=== PATIENT | male | born 1940 | race Caucasian/White ===

== ENCOUNTER → 2017-06-17 | Outpatient (CLI) | payer MEDICARE, BC ==
[~2017-06-17] MED LIST: ASPI325T6 PO; ASPIRIN 81M81 MG/TA2 PO; CALCIUM 600-D 61 TAB PO; FERROUS SU325 MG/TAB PO; FOLIC ACID 40400 MCG PO; LEVAQUIN 5500 MG/TA1 PO; LIPITOR 10MG10 MG PO; MASON NATURAL1200 MG PO; MULTIPLE VITAMI1 CAP PO; NORCO 325 MG-7.1 TAB PO; PREDNISONE20 MG PO; ROXICODONE 55 MG/TAB PO; SENOKOT S 50 MG1 TAB PO; SYNTHROID0.075 MG/T PO; VITAMIN C500 MG PO
== END ==
LOC: COL.VAS 12:09
DX: I65.23 Occlusion and stenosis of bilateral carotid arteries (principal); E78.00 Pure hypercholesterolemia, unspecified; R09.89 Other specified symptoms and signs involving the circulatory and respiratory systems

== ENCOUNTER → 2018-06-18 | Outpatient (CLI) | payer MEDICARE, BC | LOC: COL.VAS 12:27 | DX: H34.9 Unspecified retinal vascular occlusion (principal) ==

== ENCOUNTER 2019-03-18 16:08 | Inpatient (IN) | payer MEDICARE, BC ==
[~2019-03-18] VITALS: Ht 162.6 cm; Wt 75.3 kg
[2019-05-18] VITALS (13 sets, daily range): BP systolic 96–153; BP diastolic 61–86; PULSE 44–70; TEMP 97.5–98.4
[2019-05-18] MEDS ORDERED: LIPITOR20 MG PO (06:14)
[2019-05-18] MEDS ORDERED: EPA FISH OIL1 SGL PO (06:15)
[2019-05-18] MEDS ORDERED: MASON NATURAL1200 MG PO (06:15)
[2019-05-18] MEDS ORDERED: ASPIRIN E.C. 8181 MG PO (06:16)
[2019-05-18] MEDS ORDERED: CALCIUM CARBON650 M2 PO (06:16)
[2019-05-18] MEDS ORDERED: FERROUS SU325 MG/TAB PO (06:18)
--- NOTE | 2019-05-18 06:30 | NUR ---
arrived on unit per at 0605, prepped for surgery without incident, to surgery per bed
--- NOTE | 2019-05-18 10:10 | NUR ---
returned to room per bed from PACU, awake and alert, IV infusing and placed on pump at 100ml/hr, O2 on at 2L/NC, phillips cath patent draining clear yellow urine, UDAY hose on left leg and bulky dressing to right leg is CD&I with ice in place, SCDs on bilaterally, has sensation at waist level and unable to move lower extremities, full assessment completed, see interventions for further info, will provide water, denies needs
--- NOTE | 2019-05-18 10:30 | NUR ---
medicated with scheduled tylenol, taking water and tolerates well
--- NOTE | 2019-05-18 10:45 | NUR ---
is beginning to have some sensation to top of thighs but remains unable to move lower extremities
--- NOTE | 2019-05-18 11:30 | NUR ---
dozing between checks, provided pudding per his request, then instructed on ordering regular food if tolerates pudding,
--- NOTE | 2019-05-18 12:30 | NUR ---
has full sensation to feet and is able to move lower extremities, denies needs
--- NOTE | 2019-05-18 12:32 | NUR ---
had something to eat and tolerated well
--- NOTE | 2019-05-18 13:23 | NUR ---
appears to be sleeping, awakens easily
--- NOTE | 2019-05-18 13:36 | NUR ---
WILTON met with the patient to discuss a discharge plan. The patient lives in [place] with his Chloe. The patient has access to a cane and a walker and reports independence with ADLs. The patient's PCP is Dr. Duncan and patient receives medications from [facility] with no difficulties. The patient has advanced directives in the EMR. The patient plans to return home upon discharge with Chloe providing transportation. The patient reports he will have outpatient PT at [facility] 3x a week. There are no additional needs at this time.
--- NOTE | 2019-05-18 14:09 | NUR ---
continues to doze between checks, is moving lower extremities and denies need for pain meds at this time
--- NOTE | 2019-05-18 20:30 | NUR ---
Patient assisted with ambulation in hallway to room 331 and back to his room. During ambulation patient felt nauseated without emesis. Nausea resolved once back to his room. Has dressing with maximo wrap to right knee to foot, good sensation noted to right foot. Patient used walker and gait belt when ambulating. Rates pain 8/10 with movement.
--- NOTE | 2019-05-18 20:45 | NUR ---
Medicated with Oxycodone 10mg and scheduled Tylenol 650mg po. Ice pack replaced to right knee. SCD's and left UDAY hose on. Has phillips catheter to BSD with yellow urine. IVF infusing to right hand without redness or swelling.
--- NOTE | 2019-05-19 03:30 | NUR ---
Takes last dose of scheduled Tylenol. Denies need for anything stronger at this time.
[2019-05-19 04:00] VITALS: BP 124/69; PULSE 65; TEMP 98.1
--- NOTE | 2019-05-19 06:54 | NUR ---
IVF capped at this time. Taking oral fluids without problem. Coffee provided per patient request. Report to Evaristo DONALDSON.
[2019-05-19 07:22] LABS: HEMOGLOBIN 11.7 g/dl (13.5-18.0)
[2019-05-19 07:25] LABS: HEMATOCRIT 34.7 % (42.0-52.0)
--- NOTE | 2019-05-19 07:25 | NUR ---
report from Yanique DONALDSON.
[2019-05-19 07:45] VITALS: BP 131/69; PULSE 66; TEMP 98.1
--- NOTE | 2019-05-19 08:45 | NUR ---
PT RESTING IN BED. EATING AND DRINKING AM MEDS GIVEN WITH PO PAIN MEDS FOR THERAPY. PT IS A/O X3. DENIES NEEDS/.
--- NOTE | 2019-05-19 11:35 | NUR ---
DISCONTINUED LOZANO CATHETER, TIP INTACT 450 OUT OF BAG PRIOR TO REMOVAL. DRESSING CHANGE COMPLETE PER ORDERS. PT UP IN RECLINER, DENIES NEEDS.
--- NOTE | 2019-05-19 11:51 | NUR ---
First visit from the punchboard stuffer. No needs right now.
[2019-05-19 11:53] VITALS: BP 152/72; PULSE 58; TEMP 98
[2019-05-19 15:33] VITALS: BP 118/63; PULSE 60; TEMP 98.1
--- NOTE | 2019-05-19 16:33 | NUR ---
PT UP TO BR WITH SBA VOIDED AND RETURNED TO RECLINER. ALSO VOIDED 600 MLS PRIOR IN URINAL.
--- NOTE | 2019-05-19 20:30 | NUR ---
Pt. sitting up in chair at this time. Pt. is A&OX3, assessment complete. INT to rt. hand patent. Dressing to rt. knee CDI. Pt. reported pain at a 5 on pain scale, gave pain meds per orders. Pt. assisted to the bathroom and then amulated the halls with a standby assist. Pt. assisted to bed upon return to room. Pt. repositioned for comfort. Ice to rt. knee and elevated. Pt. denies further needs, call light within reach.
[2019-05-19 20:55] VITALS: BP 144/70; PULSE 66; TEMP 98.8
--- NOTE | 2019-05-20 05:22 | NUR ---
Pt. slept well through the night. Pt. remains A&OX3. Dressing to rt. knee CDI. Pt. denies pain or other needs at this time. Call light within reach.
[2019-05-20 05:57] VITALS: BP 140/65; PULSE 70; TEMP 98.3
--- NOTE | 2019-05-20 07:53 | NUR ---
PATIENT ASSESSMENT COMPLETED. PATIENT IS ALERT AND ORIENTED WITH VSS. PATIENT HAS DX OF RIGHT TOTAL KNEE. PATIENT HAS AQUACELL DRESSING ON. PATIENT HAS ICE TO KNEE. PATIENT HEART AND LUNG SOUNDS NORMAL. PATIENT HAS INT TO RIGHT HAND. PATIENT ATE 100% OF BREAKFAST THIS MORNING. PATIENT DENIES PAIN AT THIS TIME. CALL LIGHT WITHIN REACH, WILL CONTINUE TO MONITOR
[2019-05-20 08:06] LABS: HEMATOCRIT 36.6 % (42.0-52.0)
[2019-05-20 08:08] VITALS: BP 151/80; PULSE 81; TEMP 98.1
[2019-05-20] MEDS ORDERED: ASPI325T6 PO (08:14)
[2019-05-20] MEDS ORDERED: NORCO 325 MG-7.1 TAB PO (08:15)
[2019-05-20] MEDS ORDERED: TYLENOL 500MG500 MG PO (08:17)
[2019-05-20] MEDS ORDERED: ROXICODONE 55 MG/TAB PO (08:17)
[2019-05-20] MEDS ORDERED: COLACE 100100 MG/CAP PO (08:18)
[2019-05-20 12:01] VITALS: BP 152/79; PULSE 78; TEMP 98.5
--- NOTE | 2019-05-20 14:49 | NUR ---
PATIENT DISCHARGE INSTRUCTIONS GIVEN TO PATIENT. PATIENT TO GO HOME WITH AQUACELL DRESSING TO RIGHT KNEE. PATIENT IV TAKEN OUT BY NURSING. NO ISSUES NOTED. PATIENT INSTRUCTIONS GIVEN TO PATIENT AND . ALL QUESTIONS ADDRESSED AND ANSWERED. PATIENT WHEELED OUT BY NURSING STAFF
== END 2019-05-20 14:50 | disposition home or self-care (01) | DRG 470 ==
LOC: JCC 05-18 06:03
PROVIDERS: ADMIT Orthopaedic Surgery
PROC: 0SRC0J9 Replacement of Right Knee Joint with Synthetic Substitute, Cemented, Open Approach (ICD-10-PCS; principal; 2019-05-18 07:30)
DX: M17.11 Unilateral primary osteoarthritis, right knee (principal); Z79.82 Long term (current) use of aspirin; Z96.652 Presence of left artificial knee joint; Z87.891 Personal history of nicotine dependence; Z85.828 Personal history of other malignant neoplasm of skin
CPT/HCPCS: A4314; A9284; C1776; J0330; J0690; J2250; J2704; J3010; J7030; J7120

== ENCOUNTER → 2020-05-31 | Outpatient (CLI) | payer MEDICARE, BC ==
[~2020-05-31] MED LIST changes: +ASPIRIN E.C. 8181 MG PO; +CALCIUM CARBON650 M2 PO; +COLACE 100100 MG/CAP PO; +EPA FISH OIL1 SGL PO; +LIPITOR20 MG PO; +TYLENOL 500MG500 MG PO
== END ==
LOC: COL.VAS 13:34
DX: H34.9 Unspecified retinal vascular occlusion (principal); E78.5 Hyperlipidemia, unspecified; I65.23 Occlusion and stenosis of bilateral carotid arteries

== ENCOUNTER → 2020-08-22 | Outpatient (CLI) | payer MEDICARE, BC | LOC: COL.RAD 08:45 | DX: M47.816 Spondylosis without myelopathy or radiculopathy, lumbar region (principal); M43.16 Spondylolisthesis, lumbar region; M48.07 Spinal stenosis, lumbosacral region; M48.061 Spinal stenosis, lumbar region without neurogenic claudication ==

== ENCOUNTER → 2020-10-12 | Outpatient (CLI) | payer MEDICARE, BC | LOC: MHCPAIN 12:55 | DX: M47.817 Spondylosis without myelopathy or radiculopathy, lumbosacral region (principal); M53.3 Sacrococcygeal disorders, not elsewhere classified; M16.0 Bilateral primary osteoarthritis of hip; G89.29 Other chronic pain | CPT/HCPCS: G0463 ==

== ENCOUNTER 2020-12-02 11:00 | Outpatient (RCR) | payer MEDICARE, BC | END 2021-01-23 11:18 | disposition still patient (30) | LOC: WSPT 11:00 | DX: M47.896 Other spondylosis, lumbar region (principal) ==

== ENCOUNTER → 2020-12-13 | Outpatient (CLI) | payer MEDICARE, BC | LOC: MHCPAIN 12:44 | DX: M47.817 Spondylosis without myelopathy or radiculopathy, lumbosacral region (principal); M54.5 Low back pain; M53.3 Sacrococcygeal disorders, not elsewhere classified; G89.29 Other chronic pain | CPT/HCPCS: G0463 ==

== ENCOUNTER → 2023-01-07 | Outpatient (CLI) | payer MEDICARE, BC | LOC: DIA.ED 09:18 | DX: E11.22 Type 2 diabetes mellitus with diabetic chronic kidney disease (principal); N18.9 Chronic kidney disease, unspecified; I10 Essential (primary) hypertension | CPT/HCPCS: G0108 ==